=== PATIENT | female | born 1995 | race Caucasian/White ===

== ENCOUNTER 2016-11-05 18:43 | Emergency (ER) | payer OTHER ==
[~2016-11-05 18:43] MED LIST: ACETAMINOPHEN325 MG PO; FERROUS SULFAT325 M1 PO; PRENATA1 PO
--- NOTE | 2016-11-05 20:03 | ED CLINICAL REPORT ---
Clinical Report - Physicians/Mid Levels [facility] [address] [place] [address] 11/05/2016 18:45 Patient: HOMERO DANG Time Seen: 19:30; initial patient contact, initial documentation, patient care assumed. Arrived- By private vehicle. Historian- patient. HISTORY OF PRESENT ILLNESS Chief Complaint: COUGH, SORE THROAT, FEVER, MUSCLE ACHES and "FLU". This started about 4 days and is still present. The illness is described as moderate. The patient has had a cough, a sore throat, fever, chills and muscle aches. No difficulty breathing, nasal congestion or discharge, sinus pressure or sinus drainage. No ear pain. Additional history - The patient has had contact with a sick individual. Similar symptoms previously: None. Recent medical care: Not recently seen/assessed. REVIEW OF SYSTEMS All systems otherwise negative, except as recorded above. PAST HISTORY See nurses notes. PROBLEMS: Pyelonephritis. Gastroenteritis. Dental Abscess. Meningitis. OB History. Hemorrhoids. --19:15 Nyla Morales R.N. ADDITIONAL SURGERIES: no known surgeries. SOCIAL HISTORY Never smoker. Not exposed to second-hand smoke at home. No alcohol use or drug use. No recent travel. Is a local resident. FAMILY HISTORY Negative. ADDITIONAL NOTES The nursing notes have been reviewed with agreement regarding the chief complaint, HPI, ROS, PMH and patient medications and allergies. PHYSICAL EXAM Vital Signs: 11/05/2016 19:12 BP: 121/81. HR: 105. RR: 20. O2 saturation: 100%. Temp: 100.7 F. Pain level now: 5/10. Have been reviewed as abnormal and appear to be correct. Blood pressure normal. Tachycardic. Respiratory rate normal. Febrile. Oxygen saturation normal. Appearance: Alert. No acute distress. Eyes: Pupils equal, round and reactive to light. Eyes normal inspection. ENT: Ears normal. Nose normal. Pharynx normal. Uvula midline. Neck: Normal inspection. Neck supple. CVS: Normal heart rate and rhythm. Heart sounds normal. Pulses normal. Respiratory: No respiratory distress. Breath sounds normal. Abdomen: Soft and nontender. No organomegaly. Back: Normal inspection. Skin: Skin warm and dry. Normal skin color. No rash. Normal skin turgor. Extremities: Extremities exhibit normal ROM. No lower extremity edema. Neuro: Oriented X 3. No motor deficit. No sensory deficit. 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 PROGRESS AND PROCEDURES Patient counseled in person regarding the patient's stable condition and diagnosis. Differential Diagnosis: Other possible considerations: flu, viral illness, sinusitis, pharyngitis, uri, bronchitis, pneumonia. Above considerations are based on history, physical exam and laboratory data. Differential diagnosis was discussed with patient. Disposition: Discharged home in good and unchanged condition (20:02). Condition: good and stable. CLINICAL IMPRESSION Acute viral rhinitis. No airway obstruction. INSTRUCTIONS Alternate Tylenol (Acetaminophen) and Motrin (Ibuprofen) for fever, temperature greater than 101 degrees. Take according to label instructions. Drink plenty of fluids for the next 24 hours until better. Warnings: GENERAL WARNINGS: Return or contact your physician immediately if your condition worsens or changes unexpectedly, if not improving as expected, or if other problems arise. Specifically return if problem worsens. Prescription Medications: Motrin 600 mg tablets: take 1 tablet orally every 6 hours as needed for pain or fever. Dispense twenty (20). No refill. OTC Medications: Robitussin DM cough syrup (available over the counter): take one (1) teaspoon orally as needed for cough. Dispense one hundred twenty (120) mL. Follow-up: Follow up with your doctor in about five days even if well. Call for an appointment. Summary of care provided to patient. Understanding of the discharge instructions verbalized by patient. (Electronically signed by Bambi Duff A.R.N.P. 11/05/2016 20:22)
--- NOTE | 2016-11-05 20:03 | ED CLINICAL REPORT ---
Clinical Report - Physicians/Mid Levels [facility] [address] [place] [address] 11/05/2016 18:45 Patient: HOMERO DANG Time Seen: 19:30; initial patient contact, initial documentation, patient care assumed. Arrived- By private vehicle. Historian- patient. HISTORY OF PRESENT ILLNESS Chief Complaint: COUGH, SORE THROAT, FEVER, MUSCLE ACHES and "FLU". This started about 4 days and is still present. The illness is described as moderate. The patient has had a cough, a sore throat, fever, chills and muscle aches. No difficulty breathing, nasal congestion or discharge, sinus pressure or sinus drainage. No ear pain. Additional history - The patient has had contact with a sick individual. Similar symptoms previously: None. Recent medical care: Not recently seen/assessed. REVIEW OF SYSTEMS All systems otherwise negative, except as recorded above. PAST HISTORY See nurses notes. PROBLEMS: Pyelonephritis. Gastroenteritis. Dental Abscess. Meningitis. OB History. Hemorrhoids. --19:15 Nyla Morales R.N. ADDITIONAL SURGERIES: no known surgeries. SOCIAL HISTORY Never smoker. Not exposed to second-hand smoke at home. No alcohol use or drug use. No recent travel. Is a local resident. FAMILY HISTORY Negative. ADDITIONAL NOTES The nursing notes have been reviewed with agreement regarding the chief complaint, HPI, ROS, PMH and patient medications and allergies. PHYSICAL EXAM Vital Signs: 11/05/2016 19:12 BP: 121/81. HR: 105. RR: 20. O2 saturation: 100%. Temp: 100.7 F. Pain level now: 5/10. Have been reviewed as abnormal and appear to be correct. Blood pressure normal. Tachycardic. Respiratory rate normal. Febrile. Oxygen saturation normal. Appearance: Alert. No acute distress. Eyes: Pupils equal, round and reactive to light. Eyes normal inspection. ENT: Ears normal. Nose normal. Pharynx normal. Uvula midline. Neck: Normal inspection. Neck supple. CVS: Normal heart rate and rhythm. Heart sounds normal. Pulses normal. Respiratory: No respiratory distress. Breath sounds normal. Abdomen: Soft and nontender. No organomegaly. Back: Normal inspection. Skin: Skin warm and dry. Normal skin color. No rash. Normal skin turgor. Extremities: Extremities exhibit normal ROM. No lower extremity edema. Neuro: Oriented X 3. No motor deficit. No sensory deficit. 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 PROGRESS AND PROCEDURES Patient counseled in person regarding the patient's stable condition and diagnosis. Differential Diagnosis: Other possible considerations: flu, viral illness, sinusitis, pharyngitis, uri, bronchitis, pneumonia. Above considerations are based on history, physical exam and laboratory data. Differential diagnosis was discussed with patient. Disposition: Discharged home in good and unchanged condition (20:02). Condition: good and stable. CLINICAL IMPRESSION Acute viral rhinitis. No airway obstruction. INSTRUCTIONS Alternate Tylenol (Acetaminophen) and Motrin (Ibuprofen) for fever, temperature greater than 101 degrees. Take according to label instructions. Drink plenty of fluids for the next 24 hours until better. Warnings: GENERAL WARNINGS: Return or contact your physician immediately if your condition worsens or changes unexpectedly, if not improving as expected, or if other problems arise. Specifically return if problem worsens. Prescription Medications: Motrin 600 mg tablets: take 1 tablet orally every 6 hours as needed for pain or fever. Dispense twenty (20). No refill. OTC Medications: Robitussin DM cough syrup (available over the counter): take one (1) teaspoon orally as needed for cough. Dispense one hundred twenty (120) mL. Follow-up: Follow up with your doctor in about five days even if well. Call for an appointment. Summary of care provided to patient. Understanding of the discharge instructions verbalized by patient. (Electronically signed by Bambi Duff A.R.N.P. 11/05/2016 20:22)
--- NOTE | 2016-11-05 20:03 | ED ORDER SUMMARY ---
..... Patient: HOMERO DANG OrderSheet [facility] VisitID: [id number] [address] [place] [address] 21y, F Registration Date/Time: 11/05/2016 ORDER SHEET Weight: 63.5 kg (stated) Allergies: No Known Drug Allergy GENERAL ORDERS: Rapid Influenza Screen (Nasal Pharyngeal) (director software swab) Urgent (19:15 11/05/2016 Romina Mata per protocol) (Ack 19:23 IJurca ER Tech1) (Sent 19:24 IJurca ER Tech1) (19:44 HSoule) MEDICATION ORDERS: IV FLUIDS: ORDER SHEET NOTES: [Electronically signed by Nyla Morales R.N. (20:14 11/05/2016)] [Electronically signed by Bambi Duff (20:22 11/05/2016)] [Electronically locked/signed by Nyla Morales R.N. (20:14 11/05/2016)]
--- NOTE | 2016-11-05 20:03 | ED ORDER SUMMARY ---
..... Patient: HOMERO DANG OrderSheet [facility] VisitID: [id number] [address] [place] [address] 21y, F Registration Date/Time: 11/05/2016 ORDER SHEET Weight: 63.5 kg (stated) Allergies: No Known Drug Allergy GENERAL ORDERS: Rapid Influenza Screen (Nasal Pharyngeal) (lpn instructor swab) Urgent (19:15 11/05/2016 Romina Mata per protocol) (Ack 19:23 IJurca ER Tech1) (Sent 19:24 IJurca ER Tech1) (19:44 HSoule) MEDICATION ORDERS: IV FLUIDS: ORDER SHEET NOTES: [Electronically signed by Nyla Morales R.N. (20:14 11/05/2016)] [Electronically signed by Bambi Duff (20:22 11/05/2016)] [Electronically locked/signed by Nyla Morales R.N. (20:14 11/05/2016)]
--- NOTE | 2016-11-05 20:03 | ED NURSING NOTES ---
Clinical Report - Nurses [facility] [address] [place] [address] 11/05/2016 18:45 Patient: HOMERO DANG TRIAGE Triage time 19:10 Nov 05 2016. Acuity: LEVEL 4. Chief Complaint: "FLU", FEVER, COUGH, SORE THROAT and BODY ACHES and possible FLU EXPOSURE. SEPSIS SCREEN: Sepsis Screen. Negative (no infection suspected/documented). --19:15 Nyla Morales R.N. 19:12 11/05/16. BP: 121/81. HR: 105. RR: 20. O2 saturation: 100%. Temp: 100.7 F. Pain level now: 01/19. --19:15 Nyla Morales R.N. Weight: 63.5 kg stated. Height/Length: 67 inches Per Patient. BMI: 21.9. --19:09 Nyla Morales R.N. Medications None. --19:14 Nyal Morales R.N. Allergies No Known Drug Allergy. --19:14 Nyla Morales R.N. Medication/allergy information source: the patient. --19:15 Nyla Morales R.N. History Arrived by private vehicle. Historian: patient. Accompanied by friend. Onset. (4 days ago). She has had chills and fatigue. 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 PAST MEDICAL HX: Last normal menstrual period was 5 weeks ago. Uses an intrauterine device. Has not received seasonal influenza immunization. SOCIAL HX: Never smoker. No alcohol use or drug use. She has had contact with a sick individual. No infectious disease exposure. ABUSE ASSESSMENT: No report of abuse. SELF HARM ASSESSMENT: A self harm assessment was performed. The patient answered "no" to the question "Have you recently felt down, depressed, or hopeless?", "Have you noticed less interest or pleasure in doing things?", "Do you have thoughts of harming or killing yourself?", "Are you here because you tried to hurt yourself?", "Have you ever tried to hurt yourself before today?", "Have you recently had thoughts about harming or killing others?" and "Do you have any dangerous items in your possession?". NUTRITIONAL RISK ASSESSMENT: The nutritional risk assessment revealed no deficiencies. FUNCTIONAL ASSESSMENT: Functional assessment: no impairments noted. LEARNING NEEDS ASSESSMENT: The learning needs assessment revealed no barriers. SKIN INTEGRITY ASSESSMENT: Skin integrity risk assessment completed. No skin integrity risk identified. --19:15 Nyla Morales R.N. PROBLEMS: Pyelonephritis. Gastroenteritis. Dental Abscess. Meningitis. OB History. Hemorrhoids. --19:15 Nyla Morales R.N. ADDITIONAL SURGERIES: no known surgeries. Interventions ID band on patient. --19:15 Nyla Morales R.N. PHYSICAL ASSESSMENT 19:25 11/05/16. GENERAL / NEURO / PSYCH: Alert. Oriented X 4. HEENT: Pupils equal, round and reactive to light. Runny nose. ( eyes rimmed red). RESPIRATORY: Breath sounds within normal limits. GI / : The patient has had nausea. Emesis noted. Abdomen soft and nontender. SKIN: Skin intact. Skin is dry. Hot skin. No skin rash. --19:25 Nyla Morales R.N. NURSING PROGRESS NOTES 19:10 11/05/16. The initial plan of care for this patient has been created. Patient gowned. Reassurance given. Patient identifiers checked. Call light placed in reach. Side rails up x 1. Bed placed in lowest position. Patient ready for evaluation. --19:25 Nyla Morales R.N. DISPOSITION / DISCHARGE 20:14 11/05/16. Departure time: 20:14 Nov 05 2016. Condition at departure: improved and stable. The goals identified in the patient's plan of care were met. No learning barriers present. Discharge instructions provided and reviewed with the patient. Reviewed medication(s) side effects, precautions, dosing and course information. Prescription(s) given to the patient. Reviewed fever care instructions. Patient verbalized understanding. Written instructions provided in Austrian. The patient was discharged home and accompanied by family. She left the Emergency Department ambulatory and via private vehicle. Family member driving. --20:14 Nyla Morales R.N. 19:12 11/05/16. BP: 121/81. HR: 105. RR: 20. O2 saturation: 100%. Temp: 100.7 F. Pain level now: 01/19. --20:14 Nyla Morales R.N. Locked/Released at 11/05/2016 20:14 by Nyla Morales R.N.
--- NOTE | 2016-11-05 20:03 | ED NURSING NOTES ---
Clinical Report - Nurses [facility] [address] [place] [address] 11/05/2016 18:45 Patient: HOMERO DANG TRIAGE Triage time 19:10 Nov 05 2016. Acuity: LEVEL 4. Chief Complaint: "FLU", FEVER, COUGH, SORE THROAT and BODY ACHES and possible FLU EXPOSURE. SEPSIS SCREEN: Sepsis Screen. Negative (no infection suspected/documented). --19:15 Nyla Morales R.N. 19:12 11/05/16. BP: 121/81. HR: 105. RR: 20. O2 saturation: 100%. Temp: 100.7 F. Pain level now: 01/19. --19:15 Nyla Morales R.N. Weight: 63.5 kg stated. Height/Length: 67 inches Per Patient. BMI: 21.9. --19:09 Nyla Morales R.N. Medications None. --19:14 Nyla Morales R.N. Allergies No Known Drug Allergy. --19:14 Nyla Morales R.N. Medication/allergy information source: the patient. --19:15 Nyla Morales R.N. History Arrived by private vehicle. Historian: patient. Accompanied by friend. Onset. (4 days ago). She has had chills and fatigue. 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 PAST MEDICAL HX: Last normal menstrual period was 5 weeks ago. Uses an intrauterine device. Has not received seasonal influenza immunization. SOCIAL HX: Never smoker. No alcohol use or drug use. She has had contact with a sick individual. No infectious disease exposure. ABUSE ASSESSMENT: No report of abuse. SELF HARM ASSESSMENT: A self harm assessment was performed. The patient answered "no" to the question "Have you recently felt down, depressed, or hopeless?", "Have you noticed less interest or pleasure in doing things?", "Do you have thoughts of harming or killing yourself?", "Are you here because you tried to hurt yourself?", "Have you ever tried to hurt yourself before today?", "Have you recently had thoughts about harming or killing others?" and "Do you have any dangerous items in your possession?". NUTRITIONAL RISK ASSESSMENT: The nutritional risk assessment revealed no deficiencies. FUNCTIONAL ASSESSMENT: Functional assessment: no impairments noted. LEARNING NEEDS ASSESSMENT: The learning needs assessment revealed no barriers. SKIN INTEGRITY ASSESSMENT: Skin integrity risk assessment completed. No skin integrity risk identified. --19:15 Nyla Morales R.N. PROBLEMS: Pyelonephritis. Gastroenteritis. Dental Abscess. Meningitis. OB History. Hemorrhoids. --19:15 Nyla Morales R.N. ADDITIONAL SURGERIES: no known surgeries. Interventions ID band on patient. --19:15 Nyla Morales R.N. PHYSICAL ASSESSMENT 19:25 11/05/16. GENERAL / NEURO / PSYCH: Alert. Oriented X 4. HEENT: Pupils equal, round and reactive to light. Runny nose. ( eyes rimmed red). RESPIRATORY: Breath sounds within normal limits. GI / : The patient has had nausea. Emesis noted. Abdomen soft and nontender. SKIN: Skin intact. Skin is dry. Hot skin. No skin rash. --19:25 Nyla Morales R.N. NURSING PROGRESS NOTES 19:10 11/05/16. The initial plan of care for this patient has been created. Patient gowned. Reassurance given. Patient identifiers checked. Call light placed in reach. Side rails up x 1. Bed placed in lowest position. Patient ready for evaluation. --19:25 Nyla Morales R.N. DISPOSITION / DISCHARGE 20:14 11/05/16. Departure time: 20:14 Nov 05 2016. Condition at departure: improved and stable. The goals identified in the patient's plan of care were met. No learning barriers present. Discharge instructions provided and reviewed with the patient. Reviewed medication(s) side effects, precautions, dosing and course information. Prescription(s) given to the patient. Reviewed fever care instructions. Patient verbalized understanding. Written instructions provided in Vincentian. The patient was discharged home and accompanied by family. She left the Emergency Department ambulatory and via private vehicle. Family member driving. --20:14 Nyla Morales R.N. 19:12 11/05/16. BP: 121/81. HR: 105. RR: 20. O2 saturation: 100%. Temp: 100.7 F. Pain level now: 01/19. --20:14 Nyla Morales R.N. Locked/Released at 11/05/2016 20:14 by Nyla Morales R.N.
--- NOTE | 2016-11-05 20:22 | ED DISCHARGE INSTRUCTIONS ---
Patient: HOMERO DANG General Instructions [facility] VisitID: [id number] [address] [place] [address] 21y, F Registration Date/Time: 11/05/2016 Acute viral rhinitis. No airway obstruction. INSTRUCTIONS Alternate Tylenol (Acetaminophen) and Motrin (Ibuprofen) for fever, temperature greater than 101 degrees. Take according to label instructions. Drink plenty of fluids for the next 24 hours until better. Warnings: GENERAL WARNINGS: Return or contact your physician immediately if your condition worsens or changes unexpectedly, if not improving as expected, or if other problems arise. Specifically return if problem worsens. Prescription Medications: Motrin 600 mg tablets: take 1 tablet orally every 6 hours as needed for pain or fever. Dispense twenty (20). No refill. OTC Medications: Robitussin DM cough syrup (available over the counter): take one (1) teaspoon orally as needed for cough. Dispense one hundred twenty (120) mL. Follow-up: Follow up with your doctor in about five days even if well. Call for an appointment. Summary of care provided to patient. Understanding of the discharge instructions verbalized by patient. ADDITIONAL INFORMATION Viral Respiratory Illness [Adult] You have an Upper Respiratory Illness (URI) caused by a virus. This illness is contagious during the first few days. It is spread through the air by coughing and sneezing or by direct contact (touching the sick person and then touching your own eyes, nose or mouth). Most viral illnesses go away within 7-10 days with rest and simple home remedies. Sometimes, the illness may last for several weeks. Antibiotics will not kill a virus and are generally not prescribed for this condition. Home Care: 1) If symptoms are severe, rest at home for the first 2-3 days. When you resume activity, don't let yourself get too tired. 2) Avoid being exposed to cigarette smoke (yours or others). 3) Tylenol (acetaminophen) or ibuprofen (Advil, Motrin) will help fever, muscle aching and headache. (Persons under 18 with fever should not take aspirin since this may cause liver damage.) 4) Your appetite may be poor, so a light diet is fine. Avoid dehydration by drinking 6-8 glasses of fluids per day (water, soft drinks, juices, tea, soup). Extra fluids will help loosen secretions in the nose and lungs. 5) Wbdk-hfb-yvkvvwn cold medicines will not shorten the length of time youre sick, but they may be helpful for the following symptoms: cough (Robitussin DM); sore throat (Chloraseptic lozenges or spray); nasal and sinus congestion (Actifed, Sudafed, Chlortrimeton). Follow Up with your doctor or as advised if you dont improve over the next week. Get Prompt Medical Attention if any of the following occur: -- Cough with lots of colored sputum (mucus) or blood in your sputum -- Chest pain, shortness of breath, wheezing or have trouble breathing -- Severe headache; face, neck or ear pain -- Fever over 100.4 F (38.0 C) for more than three days -- You cant swallow due to throat pain Fever Control (Adult) A fever is a natural reaction of the body to an illness. In most cases, the temperature itself is not harmful. It actually helps the body fight infections. A fever does not need to be treated unless you feel very uncomfortable. Home Care If you feel warm, check your temperature. If you feel very uncomfortable and your temperature is at or higher than 100.4F (38C) oral, you may take acetaminophen (Tylenol) every 4 to 6 hours. If you cant take or keep down oral medicine, ask your pharmacist for Tylenol suppositories, which you can get without a prescription. If the fever does not respond to acetaminophen within 1 hour, take ibuprofen (Advil or Motrin). If this works, keep taking the ibuprofen every 6 to 8 hours. Note: If you have chronic liver or kidney disease or ever had a stomach ulcer or GI bleeding, talk with your doctor before using these medications. If either medication alone does not keep the fever down, you may alternate the two medicines every 3 to 4 hours, only if your healthcare provider has instructed you to do so. For example, take Motrin then wait 3 hours, take Tylenol then wait 3 hours, take Motrin, and so on. Follow your healthcare providers instructions exactly. Clothing: Keep clothing light because excess body heat is lost through the skin. The fever will go up if you wear extra layers or wrap in blankets. Fluids: Fever causes the body to lose water through evaporation. Drink plenty of fluids such as water, juice, clear sodas, aminah stephanie, or lemonade. Do not use aspirin in anyone under 18 years of age who is ill with a fever. It can cause severe liver damage. Follow Up with your doctor or as advised by our staff if you do not get better after 48 hours. Get Prompt Medical Attention if any of the following occur: Fever does not get better after taking fever medication Fast or difficult breathing Earache, sinus pain, stiff or painful neck, headache, repeated diarrhea or vomiting You feel unusually irritable, drowsy, or confused A rash appears You feel weak or dizzy, or that you might faint Ibuprofen Oral tablet What is this medicine? IBUPROFEN (eye BYOO proe fen) is a non-steroidal anti-inflammatory drug (NSAID). It is used for dental pain, fever, headaches or migraines, osteoarthritis, rheumatoid arthritis, or painful monthly periods. It can also relieve minor aches and pains caused by a cold, flu, or sore throat. How should I use this medicine? Take this medicine by mouth with a glass of water. Follow the directions on the prescription label. Take this medicine with food if your stomach gets upset. Try to not lie down for at least 10 minutes after you take the medicine. Take your medicine at regular intervals. Do not take your medicine more often than directed. A special MedGuide will be given to you by the pharmacist with each prescription and refill. Be sure to read this information carefully each time. Talk to your dishwasher preparer regarding the use of this medicine in children. Special care may be needed. What side effects may I notice from receiving this medicine? Side effects that you should report to your doctor or health critical care nurse specialist as soon as possible: allergic reactions like skin rash, itching or hives, swelling of the face, lips, or tongue black or bloody stools, blood in the urine or in vomit breathing problems changes in vision chest pain general ill feeling or flu-like symptoms nausea or vomiting redness, blistering, peeling or loosening of the skin, including inside the mouth slurred speech or weakness on one side of the body stomach pain unexplained weight gain or swelling unusually weak or tired yellowing of eyes or skin Side effects that usually do not require medical attention (report to your doctor or health critical care nurse specialist if they continue or are bothersome): constipation or diarrhea dizziness gas or heartburn stomach upset What may interact with this medicine? Do not take this medicine with any of the following medications: cidofovir ketorolac methotrexate pemetrexed This medicine may also interact with the following medications: alcohol aspirin diuretics lithium other drugs for inflammation like prednisone warfarin What if I miss a dose? If you miss a dose, take it as soon as you can. If it is almost time for your next dose, take only that dose. Do not take double or extra doses. Where should I keep my medicine? Keep out of the reach of children. Store at room temperature between 15 and 30 degrees C (59 and 86 degrees F). Keep container tightly closed. Throw away any unused medicine after the expiration date. What should I tell my health care provider before I take this medicine? They need to know if you have any of these conditions: asthma cigarette smoker drink more than 3 alcohol containing drinks a day heart disease or circulation problems such as heart failure or leg edema (fluid retention) high blood pressure kidney disease liver disease stomach bleeding or ulcers an unusual or allergic reaction to ibuprofen, aspirin, other NSAIDS, other medicines, foods, dyes, or preservatives or trying to get breast-feeding What should I watch for while using this medicine? Tell your doctor or healthcare professional if your symptoms do not start to get better or if they get worse. This medicine does not prevent heart attack or stroke. In fact, this medicine may increase the chance of a heart attack or stroke. The chance may increase with longer use of this medicine and in people who have heart disease. If you take aspirin to prevent heart attack or stroke, talk with your doctor or health critical care nurse specialist. Do not take other medicines that contain aspirin, ibuprofen, or naproxen with this medicine. Side effects such as stomach upset, nausea, or ulcers may be more likely to occur. Many medicines available without a prescription should not be taken with this medicine. This medicine can cause ulcers and bleeding in the stomach and intestines at any time during treatment. Ulcers and bleeding can happen without warning symptoms and can cause . To reduce your risk, do not smoke cigarettes or drink alcohol while you are taking this medicine. You may get drowsy or dizzy. Do not drive, use machinery, or do anything that needs mental alertness until you know how this medicine affects you. Do not stand or sit up quickly, especially if you are an older patient. This reduces the risk of dizzy or fainting spells. This medicine can cause you to bleed more easily. Try to avoid damage to your teeth and gums when you brush or floss your teeth. Dextromethorphan Hydrobromide, Guaifenesin Oral syrup What is this medicine? DEXTROMETHORPHAN; GUAIFENESIN (dex troe meth OR fan; gwye FEN e sin) is a combination of a cough suppressant and expectorant. It is used for the temporary relief of coughs. This medicine is also used to loosen mucus. How should I use this medicine? Take this medicine by mouth with a full glass of water. Follow the directions on the prescription label. Use a specially marked spoon or container to measure your dose. Household spoons are not accurate. Take your medicine at regular intervals. Do not take it more often than directed. Talk to your dishwasher preparer regarding the use of this medicine in children. Special care may be needed. What side effects may I notice from receiving this medicine? Side effects that you should report to your doctor or health critical care nurse specialist as soon as possible: allergic reactions like skin rash, itching or hives, swelling of the face, lips, or tongue breathing problems confusion excitement, nervousness, restlessness, or irritability Side effects that usually do not require medical attention (report to your doctor or health critical care nurse specialist if they continue or are bothersome): headache stomach upset What may interact with this medicine? Do not take this medicine with any of the following medications: MAOIs like Carbex, Eldepryl, Marplan, Nardil, and Parnate procarbazine This medicine may also interact with the following medications: other medicines for colds or allergy medicines for depression or other mental disturbances What if I miss a dose? If you miss a dose, take it as soon as you can. If it is almost time for your next dose, take only that dose. Do not take double or extra doses. Where should I keep my medicine? Keep out of the reach of children. Store at room temperature between 20 and 25 degrees C (68 and 77 degrees F). Keep bottle tightly closed. Throw away any unused medicine after the expiration date. What should I tell my health care provider before I take this medicine? They need to know if you have any of these conditions: chronic bronchitis kidney disease liver disease lung or breathing disease, like asthma or emphysema unable to sit up an unusual or allergic reaction to dextromethorphan, guaifenesin, other medicines, foods, dyes, bromides, or preservatives or trying to get breast-feeding What should I watch for while using this medicine? Do not treat yourself for a cough for more than 1 week without consulting your doctor or health critical care nurse specialist. If you have a high fever, skin rash, lasting headache, or sore throat, see your doctor. Drink 6 to 8 glasses of water daily while you are taking this medicine to help loosen mucus. You may get drowsy or dizzy. Do not drive, use machinery, or do anything that needs mental alertness until you know how this medicine affects you. Do not stand or sit up quickly, especially if you are an older patient. This reduces the risk of dizzy or fainting spells. Alcohol may interfere with the effect of this medicine. Avoid alcoholic drinks. You have been given the following additional information: Uri, Viral, No Abx (Adult) Fever Control (Adult) Ibuprofen Oral tablet Dextromethorphan Hydrobromide, Guaifenesin Oral syrup (Electronically signed by Bambi Duff A.R.N.P. 11/05/2016 20:22)
--- NOTE | 2016-11-05 20:23 | ED MAR SUMMARY ---
..... Medication Administration Record [facility] [address] [place], [place] [id number] Patient: HOMERO DANG Visit ID: [id number] 21y, F Weight: 63.5 kg Height/Length: 67 in BMI: 21.9 ALLERGIES: No Known Drug Allergy
--- NOTE | 2016-11-05 20:23 | ED MED RECONCILIATION SUMMARY ---
Patient: HOMERO DANG Medication Reconciliation Report [facility] VisitID: [id number] [address] [place] [address] 21y, F Registration Date/Time: 11/05/2016 Weight: 63.5 kg Height/Length: 67 in. BMI: 21.9 ALLERGIES: No Known Drug Allergy The patient's Home Medications are listed below: NONE. The source(s) of the original Home Medication information: patient The following Medications were given to the patient in the Emergency Department: None. The following Medications were prescribed to the patient: Motrin 600 mg tablets: take 1 tablet orally every 6 hours as needed for pain or fever. Dispense twenty (20). No refill. -- Bambi Duff A.R.NRubyPRuby Rodriguezitussin EDIL cough syrup (available over the counter): take one (1) teaspoon orally as needed for cough. Dispense one hundred twenty (120) mL. -- Bambi Duff A.R.NRubyP.
--- NOTE | 2016-11-05 20:23 | ED MAR SUMMARY ---
..... Medication Administration Record [facility] [address] [place], [place] [id number] Patient: HOMERO DANG Visit ID: [id number] 21y, F Weight: 63.5 kg Height/Length: 67 in BMI: 21.9 ALLERGIES: No Known Drug Allergy
--- NOTE | 2016-11-05 20:23 | ED MED RECONCILIATION SUMMARY ---
Patient: HOMERO DANG Medication Reconciliation Report [facility] VisitID: [id number] [address] [place] [address] 21y, F Registration Date/Time: 11/05/2016 Weight: 63.5 kg Height/Length: 67 in. BMI: 21.9 ALLERGIES: No Known Drug Allergy The patient's Home Medications are listed below: NONE. The source(s) of the original Home Medication information: patient The following Medications were given to the patient in the Emergency Department: None. The following Medications were prescribed to the patient: Motrin 600 mg tablets: take 1 tablet orally every 6 hours as needed for pain or fever. Dispense twenty (20). No refill. -- Bambi Duff A.R.NRubyPRuby Rodriguezitussin EDIL cough syrup (available over the counter): take one (1) teaspoon orally as needed for cough. Dispense one hundred twenty (120) mL. -- Bambi Duff A.R.NRubyP.
== END 2016-11-05 20:15 | disposition home or self-care (01) ==
LOC: ED SRH 18:43
DX: J00 Acute nasopharyngitis [common cold] (principal); B97.89 Other viral agents as the cause of diseases classified elsewhere
CPT/HCPCS: 91400

== ENCOUNTER 2017-02-23 18:26 | Emergency (ER) | payer OTHER ==
--- NOTE | 2017-02-23 20:47 | DIAGNOSTIC IMAGING REPORT ---
PROCEDURE: US COMPLETE PELVIC W/TRANSVAG INDICATION: Pelvic pain and bleeding. History of minimal free fluid in the cul-de-sac. TECHNIQUE: Transabdominal and endovaginal escoto scale and color Doppler sonographic images of the female pelvis were obtained. COMPARISON: None. FINDINGS: TRANSABDOMINAL SCANS: Uterus is of normal size (9.1 x 4.4 x 5.4 cm). Kidneys are normal. TRANSVAGINAL SCANS: There is a T-shaped IUD with one of the limbs penetrating into the ventral myometrium, extending to the subserosal surface (suboptimal position). Endometrial thickness is normal (6 mm). Ovaries are normal (right 3.5 cm, left 3.3 cm) with a 1.9 cm simple right ovarian cyst. Small amount of free fluid in the pelvis. IMPRESSION: 1. There is a T-shaped IUD in suboptimal position with one of the limbs penetrating into the ventral myometrium and extending to the subserosal surface. 2. There is a 1.9 cm simple right ovarian cyst (most likely incidental finding). 3. Small amount of free fluid in the pelvis. 4. Findings discussed with Kristen Coombs PAC.
--- NOTE | 2017-02-23 20:48 | ED ORDER SUMMARY ---
..... Patient: HOMERO DANG OrderSheet [facility] VisitID: [id number] [place] [address] 22y, F Registration Date/Time: 02/23/2017 ORDER SHEET Weight: 56.2 kg (stated) Allergies: GENERAL ORDERS: Pelvic Exam Setup (18:47 02/23/2017 Gamal Tucker) (Ack 19:34 DDean R.N.) (20:07 DDean R.N.) POC - Urine hCG (18:50 02/23/2017 DDean R.N. per protocol) (19:34 DDean R.N.) US Pelvic Complete w Transvag Urgent (18:55 02/23/2017 Gamal Tucker) (Ack 18:57 PWeiler ER Tech1) (19:34 DDean R.N.) MEDICATION ORDERS: IV FLUIDS: ORDER SHEET NOTES: [Electronically signed by Niru Mercado R.N. (21:35 02/23/2017)] [Electronically signed by Griselda Coombs P.A.-C (22:49 02/23/2017)] [Electronically locked/signed by Niru Mercado R.N. (21:35 02/23/2017)]
--- NOTE | 2017-02-23 20:48 | ED NURSING NOTES ---
Clinical Report - Nurses [facility] [address] [place] [address] 02/23/2017 18:26 Patient: HOMERO DANG TRIAGE Triage time 1838. Acuity: LEVEL 3. Chief Complaint: PELVIC PAIN and VAGINAL BLEED and (Pt states she has had off and on bleeding x 2 months. in today because she "passed a big clot" she has done that once before during the last 2 months. Pt has an IUD in place and is worried because "all the women in my family hav had problems with IUD's, and some have had to have there (uterus) parts taken out"). --18:49 Niru Mercado R.N. 18:38 02/23/17. BP: 110/74 taken while sitting. HR: 78. RR: 18. O2 saturation: 100%. Temp: 98.2 F. Pain level now: 03/21. Additional comments: 116/81 STANDING, 80 standing. --18:49 Niru Mercado R.N. Weight: 56.2 kg stated. Height/Length: 67.5 inches Per Patient. BMI: 19.1. --18:47 Niru Mercado R.N. History Arrived by private vehicle. Historian: patient. Accompanied by mother. Primary physician (gumaro HAS APPT WITH DR ZAVALETA TOMORROW FOR THIS). The patient has had abdominal pain (low generalized abd pain). She has had spotting. SURGERY HX: No history of previous surgery. SOCIAL HX: Never smoker. Occasional alcohol use. No drug use. --18:49 Niru Mercado R.N. PROBLEMS: URI. Sick Contact. Myofascial Strain. Pyelonephritis. Gastroenteritis. Dental Abscess. Meningitis. Pharyngitis. OB History. Hemorrhoids. Vaginitis. Leukocytosis. UTI - Urinary Tract Infection. --18:46 Niru Mercado R.N. Interventions ID band on patient. To treatment room. --18:49 Niru Mercado R.N. PHYSICAL ASSESSMENT 18:38. Ambulatory to room. Patient gowned. GENERAL / NEURO / PSYCH: Alert. Oriented X 4. Appears in pain. HEENT: Mucous membranes are pink. RESPIRATORY: Respirations not labored. CVS: Capillary refill less than 2 seconds. GI / : Abdomen soft. SKIN: Skin is warm and dry. --18:49 Niru Mercado R.N. NURSING PROGRESS NOTES 18:38. Patient gowned. Head of bed elevated. Reassurance given. Patient identifiers checked. Call light placed in reach. Side rails up. Bed placed in lowest position. Patient ready for evaluation- chart flagged. --18:49 Niru Mercado R.N. 18:45. ( pt given instructions and equipment to obtain and ua). --18:50 Niru Mercado R.N. 19:15 POC urine= Negative ERNP notified. --19:33 Niru Mercado R.N. 19:22. ( US at bedside doing exam). --19:34 Niru Mercado R.N. 19:52. PELVIC EXAM: Pelvic exam performed by PA. Assisted by one nurse. Preparation: pelvic tray; patient placed in lithotomy position. Status post-procedure: she was stable. Total time of assist / procedure: 15 minutes. ( IUD removed by EDPA during exam). --20:08 Niru Mercado R.N. DISPOSITION / DISCHARGE 21:05. Condition at departure: stable. No learning barriers present. Reviewed medication(s) (tylenol, motrin). Reviewed referral to an handle sander operator (f/[facility] tomorrow). Patient verbalized understanding. Written instructions provided in Greenlandic. The patient was discharged home and accompanied by parent. She left the Emergency Department ambulatory and via private vehicle. Parent driving. --21:34 Niru Mercado R.N. 21:05 02/23/17. BP: 91/65. HR: 65. RR: 18. O2 saturation: 100%. Temp: deferred. Pain level now: 0/10. --21:34 Niru Mercado R.N. Locked/Released at 02/23/2017 21:35 by Niru Mercado R.N.
--- NOTE | 2017-02-23 20:48 | ED CLINICAL REPORT ---
Clinical Report - Physicians/Mid Levels [facility] [address] [place] [address] 02/23/2017 18:26 [id number] Time Seen: 18:59 Keon 14 2016. Arrived- By private vehicle. Historian- patient. HISTORY OF PRESENT ILLNESS Chief Complaint: VAGINAL BLEEDING. This started 2 months [employer] and still present. The patient has had pelvic pain. (Patient reports IUD in place over the last 15-16 month, and has over the last 6 months been giving her more problems, including vaginal bleeding, increased vaginal bleeding, duration and frequency, over the last 2 months as only had a few days with no vaginal bleeding. Large vaginal clots and previous previously, as well as today. Patient denies any loss of consciousness, syncope. She has had some suprapubic pain.). REVIEW OF SYSTEMS No vomiting, black stools, skin rash or enlarged lymph nodes. All systems otherwise negative, except as recorded above. PAST HISTORY No history of ectopic . Problems: URI. Sick Contact. Myofascial Strain. Pyelonephritis. Gastroenteritis. Dental Abscess. Skin Rash. Meningitis. Pharyngitis. OB History. Hemorrhoids. Vaginitis. Changed Mental Status. Leukocytosis. Abdominal Pain. Threatened . UTI - Urinary Tract Infection. Immunizations. LNMP - Last Normal Menstrual Period. . Additional Surgeries: no known surgeries. SOCIAL HISTORY Never smoker. Alcohol use. No drug use. ADDITIONAL NOTES The nursing notes have been reviewed. PHYSICAL EXAM Vital Signs: 02/23/2017 18:38 BP: 110/74. HR: 78. RR: 18. O2 saturation: 100%. Temp: 98.2 F. Pain level now: 7/10. Appearance: Alert. HEENT: Normal external inspection. Neck: Neck supple. CVS: Heart sounds normal. Respiratory: No respiratory distress. Breath sounds normal. Abdomen: Soft. No mass. No obesity. The bowel sounds are not abnormal. Back: Normal external inspection. : Speculum and bimanual exam performed. External inspection normal. Speculum exam normal. Vaginal bleeding. Bimanual exam normal. (iud strings visualized and removed, no further bleeding from os after removal). Skin: Skin warm. Normal skin color. Neuro: Oriented X 3. LABS, X-RAYS, AND EKG Pelvic Sonogram: IMPRESSION: 1. There is a T-shaped IUD in suboptimal position with one of the limbs penetrating into the ventral myometrium and extending to the subserosal surface. 2. There is a 1.9 cm simple right ovarian cyst (most likely incidental finding). 3. Small amount of free fluid in the pelvis. 4. Findings discussed with Kristen Coombs PAC. Electronically Final signed by:Wilner Estes MD 02/23/2017 8:42:08 PM. PROGRESS AND PROCEDURES Course of Care: 19:15 POC urine= Negative Patient with vaginal bleeding over the last few month, IUD is largely misplaced, close to perforation, however none now. Patient has follow up with [employer] tomorrow, IUD removed. Discussed this with patient, patient also here with mom. Abdomen is otherwise soft, do not suspect any signs of acute surgical abdomen, infection and consequent removal. 02/23/2017 21:05 BP: 91/65. HR: 65. RR: 18. O2 saturation: 100%. Pain level now: 0/10. Patient is stable. Physical exam findings are improved. Symptoms better. Patient/family counseled. Disposition: Discharged. Condition: good. CLINICAL IMPRESSION Moderate dysfunctional uterine bleeding- menorrhagia. IUD Misplacement. INSTRUCTIONS Drink plenty of fluids. Warnings: Further evaluation is necessary. OTC Medications: Take acetaminophen (Tylenol, Datril, etc.) and ibuprofen (Advil, Nuprin, etc.) according to label instructions. Available over the counter. Follow-up: Follow up with your doctor tomorrow in. Understanding of the discharge instructions verbalized by patient. (Electronically signed by Griselda Coombs P.A.-C 02/23/2017 22:49)
--- NOTE | 2017-02-23 20:48 | ED ORDER SUMMARY ---
..... Patient: HOMERO DANG OrderSheet [facility] VisitID: [id number] [place] [address] 22y, F Registration Date/Time: 02/23/2017 ORDER SHEET Weight: 56.2 kg (stated) Allergies: GENERAL ORDERS: Pelvic Exam Setup (18:47 02/23/2017 Gamal Tucker) (Ack 19:34 DDean R.N.) (20:07 DDean R.N.) POC - Urine hCG (18:50 02/23/2017 DDean R.N. per protocol) (19:34 DDean R.N.) US Pelvic Complete w Transvag Urgent (18:55 02/23/2017 Gamal Tucker) (Ack 18:57 PWeiler ER Tech1) (19:34 DDean R.N.) MEDICATION ORDERS: IV FLUIDS: ORDER SHEET NOTES: [Electronically signed by Niru Mercado R.N. (21:35 02/23/2017)] [Electronically signed by Griselda Coombs P.A.-C (22:49 02/23/2017)] [Electronically locked/signed by Niru Mercado R.N. (21:35 02/23/2017)]
--- NOTE | 2017-02-23 20:48 | ED NURSING NOTES ---
Clinical Report - Nurses [facility] [address] [place] [address] 02/23/2017 18:26 Patient: HOMERO DANG TRIAGE Triage time 1838. Acuity: LEVEL 3. Chief Complaint: PELVIC PAIN and VAGINAL BLEED and (Pt states she has had off and on bleeding x 2 months. in today because she "passed a big clot" she has done that once before during the last 2 months. Pt has an IUD in place and is worried because "all the women in my family hav had problems with IUD's, and some have had to have there (uterus) parts taken out"). --18:49 Niru Mercado R.N. 18:38 02/23/17. BP: 110/74 taken while sitting. HR: 78. RR: 18. O2 saturation: 100%. Temp: 98.2 F. Pain level now: 03/21. Additional comments: 116/81 STANDING, 80 standing. --18:49 Niru Mercado R.N. Weight: 56.2 kg stated. Height/Length: 67.5 inches Per Patient. BMI: 19.1. --18:47 Niru Mercado R.N. History Arrived by private vehicle. Historian: patient. Accompanied by mother. Primary physician (gumaro HAS APPT WITH DR ZAVALETA TOMORROW FOR THIS). The patient has had abdominal pain (low generalized abd pain). She has had spotting. SURGERY HX: No history of previous surgery. SOCIAL HX: Never smoker. Occasional alcohol use. No drug use. --18:49 Niru Mercado R.N. PROBLEMS: URI. Sick Contact. Myofascial Strain. Pyelonephritis. Gastroenteritis. Dental Abscess. Meningitis. Pharyngitis. OB History. Hemorrhoids. Vaginitis. Leukocytosis. UTI - Urinary Tract Infection. --18:46 Niru Mercado R.N. Interventions ID band on patient. To treatment room. --18:49 Niru Mercado R.N. PHYSICAL ASSESSMENT 18:38. Ambulatory to room. Patient gowned. GENERAL / NEURO / PSYCH: Alert. Oriented X 4. Appears in pain. HEENT: Mucous membranes are pink. RESPIRATORY: Respirations not labored. CVS: Capillary refill less than 2 seconds. GI / : Abdomen soft. SKIN: Skin is warm and dry. --18:49 Niru Mercado R.N. NURSING PROGRESS NOTES 18:38. Patient gowned. Head of bed elevated. Reassurance given. Patient identifiers checked. Call light placed in reach. Side rails up. Bed placed in lowest position. Patient ready for evaluation- chart flagged. --18:49 Niru Mercado R.N. 18:45. ( pt given instructions and equipment to obtain and ua). --18:50 Niru Mercado R.N. 19:15 POC urine= Negative ERNP notified. --19:33 Niru Mercado R.N. 19:22. ( US at bedside doing exam). --19:34 Niru Mercado R.N. 19:52. PELVIC EXAM: Pelvic exam performed by PA. Assisted by one nurse. Preparation: pelvic tray; patient placed in lithotomy position. Status post-procedure: she was stable. Total time of assist / procedure: 15 minutes. ( IUD removed by EDPA during exam). --20:08 Niru Mercado R.N. DISPOSITION / DISCHARGE 21:05. Condition at departure: stable. No learning barriers present. Reviewed medication(s) (tylenol, motrin). Reviewed referral to an freight trucker (f/[facility] tomorrow). Patient verbalized understanding. Written instructions provided in Mongolian. The patient was discharged home and accompanied by parent. She left the Emergency Department ambulatory and via private vehicle. Parent driving. --21:34 Niru Mercado R.N. 21:05 02/23/17. BP: 91/65. HR: 65. RR: 18. O2 saturation: 100%. Temp: deferred. Pain level now: 0/10. --21:34 Niru Mercado R.N. Locked/Released at 02/23/2017 21:35 by Niru Mercado R.N.
--- NOTE | 2017-02-23 20:48 | ED CLINICAL REPORT ---
Clinical Report - Physicians/Mid Levels [facility] [address] [place] [address] 02/23/2017 18:26 [id number] Time Seen: 18:59 Keon 14 2016. Arrived- By private vehicle. Historian- patient. HISTORY OF PRESENT ILLNESS Chief Complaint: VAGINAL BLEEDING. This started 2 months [employer] and still present. The patient has had pelvic pain. (Patient reports IUD in place over the last 15-16 month, and has over the last 6 months been giving her more problems, including vaginal bleeding, increased vaginal bleeding, duration and frequency, over the last 2 months as only had a few days with no vaginal bleeding. Large vaginal clots and previous previously, as well as today. Patient denies any loss of consciousness, syncope. She has had some suprapubic pain.). REVIEW OF SYSTEMS No vomiting, black stools, skin rash or enlarged lymph nodes. All systems otherwise negative, except as recorded above. PAST HISTORY No history of ectopic . Problems: URI. Sick Contact. Myofascial Strain. Pyelonephritis. Gastroenteritis. Dental Abscess. Skin Rash. Meningitis. Pharyngitis. OB History. Hemorrhoids. Vaginitis. Changed Mental Status. Leukocytosis. Abdominal Pain. Threatened . UTI - Urinary Tract Infection. Immunizations. LNMP - Last Normal Menstrual Period. . Additional Surgeries: no known surgeries. SOCIAL HISTORY Never smoker. Alcohol use. No drug use. ADDITIONAL NOTES The nursing notes have been reviewed. PHYSICAL EXAM Vital Signs: 02/23/2017 18:38 BP: 110/74. HR: 78. RR: 18. O2 saturation: 100%. Temp: 98.2 F. Pain level now: 7/10. Appearance: Alert. HEENT: Normal external inspection. Neck: Neck supple. CVS: Heart sounds normal. Respiratory: No respiratory distress. Breath sounds normal. Abdomen: Soft. No mass. No obesity. The bowel sounds are not abnormal. Back: Normal external inspection. : Speculum and bimanual exam performed. External inspection normal. Speculum exam normal. Vaginal bleeding. Bimanual exam normal. (iud strings visualized and removed, no further bleeding from os after removal). Skin: Skin warm. Normal skin color. Neuro: Oriented X 3. LABS, X-RAYS, AND EKG Pelvic Sonogram: IMPRESSION: 1. There is a T-shaped IUD in suboptimal position with one of the limbs penetrating into the ventral myometrium and extending to the subserosal surface. 2. There is a 1.9 cm simple right ovarian cyst (most likely incidental finding). 3. Small amount of free fluid in the pelvis. 4. Findings discussed with Kristen Coombs PAC. Electronically Final signed by:Wilner Estes MD 02/23/2017 8:42:08 PM. PROGRESS AND PROCEDURES Course of Care: 19:15 POC urine= Negative Patient with vaginal bleeding over the last few month, IUD is largely misplaced, close to perforation, however none now. Patient has follow up with SHIP WASHER tomorrow, IUD removed. Discussed this with patient, patient also here with mom. Abdomen is otherwise soft, do not suspect any signs of acute surgical abdomen, infection and consequent removal. 02/23/2017 21:05 BP: 91/65. HR: 65. RR: 18. O2 saturation: 100%. Pain level now: 0/10. Patient is stable. Physical exam findings are improved. Symptoms better. Patient/family counseled. Disposition: Discharged. Condition: good. CLINICAL IMPRESSION Moderate dysfunctional uterine bleeding- menorrhagia. IUD Misplacement. INSTRUCTIONS Drink plenty of fluids. Warnings: Further evaluation is necessary. OTC Medications: Take acetaminophen (Tylenol, Datril, etc.) and ibuprofen (Advil, Nuprin, etc.) according to label instructions. Available over the counter. Follow-up: Follow up with your doctor tomorrow in. Understanding of the discharge instructions verbalized by patient. (Electronically signed by Griselda Coombs P.A.-C 02/23/2017 22:49)
--- NOTE | 2017-02-23 22:49 | ED DISCHARGE INSTRUCTIONS ---
Patient: HOMERO DANG General Instructions [facility] VisitID: [id number] [place] [address] 22y, F Registration Date/Time: 02/23/2017 Moderate dysfunctional uterine bleeding- menorrhagia. IUD Misplacement. INSTRUCTIONS Drink plenty of fluids. Warnings: Further evaluation is necessary. OTC Medications: Take acetaminophen (Tylenol, Datril, etc.) and ibuprofen (Advil, Nuprin, etc.) according to label instructions. Available over the counter. Follow-up: Follow up with your doctor tomorrow in. Understanding of the discharge instructions verbalized by patient. ADDITIONAL INFORMATION Irregular Vaginal Bleeding This is a condition in which bleeding occurs at unexpected times of the month. The bleeding may be heavier or tank house operator than usual. Heavy bleeding may lead to anemia. If severe enough, anemia may cause you to look pale and feel weak or fatigued. You might have shortness of breath even with little exertion. The female hormones produced in your body every month may be out of balance. This imbalance leads to bleeding. Causes could include an ovarian cyst, emotional stress, pelvic infection. Failure to ovulate during your last cycle may also cause this problem. Home Care: If bleeding is heavy, rest and avoid heavy exertion. You may use acetaminophen (Tylenol) or ibuprofen (Motrin, Advil) to control pain, unless another pain medicine was prescribed. [NOTE: If you have chronic liver or kidney disease or ever had a stomach ulcer or GI bleeding, talk with your doctor before using these medicines.] Iron supplements may be prescribed for anemia. It takes about 4-6 weeks for the iron to correct the anemia. Take the medicine as directed. See your doctor for a repeat blood test after you finish the iron treatment. If hormones were prescribed to control your bleeding, take them exactly as directed. If you were prescribed a medicine called Provera (medroxyprogesterone), the bleeding should stop while you are taking it. Another period will start a few days after you finish the medicine. Follow Up with your doctor, or as advised, within the next 1-2 days if heavy bleeding continues. Otherwise, follow up within the next 1-2 weeks. Get Prompt Medical Attention if any of the following occur: Bleeding becomes heavy (soaking one pad an hour for three hours) Fever of 100.4F (38C) or higher, or as directed by your healthcare provider Increase in abdominal pain Weakness, dizziness or fainting You have been given the following additional information: Dysfunctional Uterine Bleeding (Electronically signed by Griselda Coombs P.A.-C 02/23/2017 22:49)
--- NOTE | 2017-02-23 22:49 | ED DISCHARGE INSTRUCTIONS ---
Patient: HOMERO DANG General Instructions [facility] VisitID: [id number] [place] [address] 22y, F Registration Date/Time: 02/23/2017 Moderate dysfunctional uterine bleeding- menorrhagia. IUD Misplacement. INSTRUCTIONS Drink plenty of fluids. Warnings: Further evaluation is necessary. OTC Medications: Take acetaminophen (Tylenol, Datril, etc.) and ibuprofen (Advil, Nuprin, etc.) according to label instructions. Available over the counter. Follow-up: Follow up with your doctor tomorrow in. Understanding of the discharge instructions verbalized by patient. ADDITIONAL INFORMATION Irregular Vaginal Bleeding This is a condition in which bleeding occurs at unexpected times of the month. The bleeding may be heavier or erp pm than usual. Heavy bleeding may lead to anemia. If severe enough, anemia may cause you to look pale and feel weak or fatigued. You might have shortness of breath even with little exertion. The female hormones produced in your body every month may be out of balance. This imbalance leads to bleeding. Causes could include an ovarian cyst, emotional stress, pelvic infection. Failure to ovulate during your last cycle may also cause this problem. Home Care: If bleeding is heavy, rest and avoid heavy exertion. You may use acetaminophen (Tylenol) or ibuprofen (Motrin, Advil) to control pain, unless another pain medicine was prescribed. [NOTE: If you have chronic liver or kidney disease or ever had a stomach ulcer or GI bleeding, talk with your doctor before using these medicines.] Iron supplements may be prescribed for anemia. It takes about 4-6 weeks for the iron to correct the anemia. Take the medicine as directed. See your doctor for a repeat blood test after you finish the iron treatment. If hormones were prescribed to control your bleeding, take them exactly as directed. If you were prescribed a medicine called Provera (medroxyprogesterone), the bleeding should stop while you are taking it. Another period will start a few days after you finish the medicine. Follow Up with your doctor, or as advised, within the next 1-2 days if heavy bleeding continues. Otherwise, follow up within the next 1-2 weeks. Get Prompt Medical Attention if any of the following occur: Bleeding becomes heavy (soaking one pad an hour for three hours) Fever of 100.4F (38C) or higher, or as directed by your healthcare provider Increase in abdominal pain Weakness, dizziness or fainting You have been given the following additional information: Dysfunctional Uterine Bleeding (Electronically signed by Griselda Coombs P.A.-C 02/23/2017 22:49)
--- NOTE | 2017-02-23 22:50 | ED MAR SUMMARY ---
..... Medication Administration Record [facility] [address] [place], [place] [id number] Patient: HOMERO DANG Visit ID: [id number] 22y, F Weight: 56.2 kg Height/Length: 67.5 in BMI: 19.1 ALLERGIES:
--- NOTE | 2017-02-23 22:50 | ED MED RECONCILIATION SUMMARY ---
Patient: HOMERO DANG Medication Reconciliation Report [facility] VisitID: [id number] [place] [address] 22y, F Registration Date/Time: 02/23/2017 Weight: 56.2 kg Height/Length: (not available) BMI: 19.1 ALLERGIES: The patient's Home Medications are listed below: Not obtained. The source(s) of the original Home Medication information: Not obtained. The following Medications were given to the patient in the Emergency Department: None. The following Medications were prescribed to the patient: Take acetaminophen (Tylenol, Datril, etc.) and ibuprofen (Advil, Nuprin, etc.) according to label instructions. Available over the counter. -- Griselda Coombs P.A.-C
--- NOTE | 2017-02-23 22:50 | ED MAR SUMMARY ---
..... Medication Administration Record [facility] [address] [place], [place] [id number] Patient: HOMERO DANG Visit ID: [id number] 22y, F Weight: 56.2 kg Height/Length: 67.5 in BMI: 19.1 ALLERGIES:
--- NOTE | 2017-02-23 22:50 | ED MED RECONCILIATION SUMMARY ---
Patient: HOMERO DANG Medication Reconciliation Report [facility] VisitID: [id number] [place] [address] 22y, F Registration Date/Time: 02/23/2017 Weight: 56.2 kg Height/Length: (not available) BMI: 19.1 ALLERGIES: The patient's Home Medications are listed below: Not obtained. The source(s) of the original Home Medication information: Not obtained. The following Medications were given to the patient in the Emergency Department: None. The following Medications were prescribed to the patient: Take acetaminophen (Tylenol, Datril, etc.) and ibuprofen (Advil, Nuprin, etc.) according to label instructions. Available over the counter. -- Griselda Coombs P.A.-C
== END 2017-02-23 21:05 | disposition home or self-care (01) ==
LOC: ED SRH 18:26
DX: N93.8 Other specified abnormal uterine and vaginal bleeding (principal); T83.32XA Displacement of intrauterine contraceptive device, initial encounter

== ENCOUNTER 2017-03-04 17:51 | Emergency (ER) | payer OTHER ==
--- NOTE | 2017-03-04 19:56 | ED ORDER SUMMARY ---
..... Patient: HOMERO DANG OrderSheet [facility] VisitID: [id number] [address] [place] [address] 22y, F Registration Date/Time: 03/04/2017 ORDER SHEET Weight: 60.3 kg (stated) Allergies: No Known Drug Allergy GENERAL ORDERS: Cervical Spine 2 or 3V Urgent (18:20 03/04/2017 Angela Bradford) (Ack 18:28 KHoerner) (19:02 KHoerner) Thoracic Spine 3V Urgent (18:20 03/04/2017 Angela Bradford) (Ack 18:28 KHoerner) (19:02 KHoerner) MEDICATION ORDERS: IV FLUIDS: ORDER SHEET NOTES: [Electronically signed by Michael Fischer R.N. (20:34 03/04/2017)] [Electronically signed by Amador Frias Dr. (21:33 03/05/2017)] [Electronically locked/signed by Michael Fischer R.N. (20:34 03/04/2017)]
--- NOTE | 2017-03-04 19:56 | ED ORDER SUMMARY ---
..... Patient: HOMERO DANG OrderSheet [facility] VisitID: [id number] [address] [place] [address] 22y, F Registration Date/Time: 03/04/2017 ORDER SHEET Weight: 60.3 kg (stated) Allergies: No Known Drug Allergy GENERAL ORDERS: Cervical Spine 2 or 3V Urgent (18:20 03/04/2017 Angela Bradford) (Ack 18:28 KHoerner) (19:02 KHoerner) Thoracic Spine 3V Urgent (18:20 03/04/2017 Angela Bradford) (Ack 18:28 KHoerner) (19:02 KHoerner) MEDICATION ORDERS: IV FLUIDS: ORDER SHEET NOTES: [Electronically signed by Michael Fischer R.N. (20:34 03/04/2017)] [Electronically signed by Amador Frias Dr. (21:33 03/05/2017)] [Electronically locked/signed by Michael Fischer R.N. (20:34 03/04/2017)]
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
--- NOTE | 2017-03-05 21:34 | ED MAR SUMMARY ---
..... Medication Administration Record [facility] [address], [place] [id number] Patient: HOMERO DANG Visit ID: [id number] 22y, F Weight: 60.3 kg Height/Length: 67 in BMI: 20.8 ALLERGIES: No Known Drug Allergy
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
--- NOTE | 2017-03-05 21:34 | ED MAR SUMMARY ---
..... Medication Administration Record [facility] [address] [place], [place] [id number] Patient: HOMERO DANG Visit ID: [id number] 22y, F Weight: 60.3 kg Height/Length: 67 in BMI: 20.8 ALLERGIES: No Known Drug Allergy
--- NOTE | 2017-03-05 21:34 | ED MED RECONCILIATION SUMMARY ---
Patient: HOMERO DANG Medication Reconciliation Report [facility] VisitID: [id number] [address] [place] [address] 22y, F Registration Date/Time: 03/04/2017 Weight: 60.3 kg Height/Length: 67 in. BMI: 20.8 ALLERGIES: No Known Drug Allergy The patient's Home Medications are listed below: CONTINUE TAKING THE FOLLOWING MEDICATIONS: Anxiety medication Depression med The source(s) of the original Home Medication information: Not obtained. The following Medications were given to the patient in the Emergency Department: None. The following Medications were prescribed to the patient: Baclofen 10 mg: take 1 orally every 8 hours. Dispense twenty (20). No refills. -- Amador Frias Dr. Diclofenac 50 mg tablets: take 1 tablet orally every 8 hours as needed for pain or stiffness. Dispense thirty (30). No refill. -- Amador Frias Dr.
--- NOTE | 2017-03-05 21:34 | ED MED RECONCILIATION SUMMARY ---
Patient: HOMERO DANG Medication Reconciliation Report [facility] VisitID: [id number] [address] [place] [address] 22y, F Registration Date/Time: 03/04/2017 Weight: 60.3 kg Height/Length: 67 in. BMI: 20.8 ALLERGIES: No Known Drug Allergy The patient's Home Medications are listed below: CONTINUE TAKING THE FOLLOWING MEDICATIONS: Anxiety medication Depression med The source(s) of the original Home Medication information: Not obtained. The following Medications were given to the patient in the Emergency Department: None. The following Medications were prescribed to the patient: Baclofen 10 mg: take 1 orally every 8 hours. Dispense twenty (20). No refills. -- Amador Frias Dr. Diclofenac 50 mg tablets: take 1 tablet orally every 8 hours as needed for pain or stiffness. Dispense thirty (30). No refill. -- Amador Frias Dr.
== END 2017-03-04 20:07 | disposition home or self-care (01) ==
LOC: ED SRH 17:51
DX: S16.1XXA Strain of muscle, fascia and tendon at neck level, initial encounter (principal); S39.012A Strain of muscle, fascia and tendon of lower back, initial encounter; V59.50XA Passenger in pick-up truck or van injured in collision with unspecified motor vehicles in traffic accident, initial encounter; Y93.89 Activity, other specified; Y92.410 Unspecified street and highway as the place of occurrence of the external cause; Y99.8 Other external cause status